=== PATIENT | male | born 1955 | race Caucasian/White ===

== ENCOUNTER 2021-12-06 05:41 | Day surgery (SDC) | payer OTHER ==
[2021-12-06] MEDS ORDERED: Lactated Ringers 1,000 ML IV SCH (07:00)
[2021-12-06] MEDS ORDERED: Xylocaine-Mpf 2% 5 Ml Vial ONE (08:00)
[2021-12-06] MEDS ORDERED: DIPRIVAN 200 MG/20 ML IV ONE ×2 (08:00→08:15)
[2021-12-06 09:12] VITALS: BP 130/88; PULSE 68; O2SAT 100
--- NOTE | 2021-12-06 11:13 | OP ---
SURGERY DATE/TIME: 12/06/2021 0759 PREOPERATIVE DIAGNOSIS: Screening exam. POSTOPERATIVE DIAGNOSIS: Normal colon. PROCEDURE: Colonoscopy. SURGEON: Dr. Mark Crum. ANESTHESIA: MAC. Medications given by anesthesia department. HISTORY: The patient is a 66-year-old white male patient presenting now for screening colonoscopy. He was appraised of the risks of the procedure including the risk of perforation, phlebitis, untoward reaction to medication, bleeding and missed lesions. The patient verbalized his understanding and desired to have the procedure performed. DESCRIPTION OF PROCEDURE: The patient was given the medications by the anesthesia department. He had continuous pulse oximetry, ECG monitoring, intermittent blood pressure monitoring during the examination. He was placed in the left lateral decubitus position. A digital rectal examination was performed and revealed normal anal sphincter tone, no masses and normal prostate. The flexible Olympus pediatric colonoscope was used to intubate the rectum. A view of the colon was developed sequentially to the cecum. Upon insertion and withdrawal, including a retroflex view in the rectum, no mucosal lesions were encountered. The scope was removed from the patient who tolerated the procedure well and was sent back to OP recovery in good condition. The prep was noted to be fair.
== END 2021-12-06 09:22 | disposition home or self-care (01) ==
LOC: SDC 05:41
PROVIDERS: ATTEND Family Medicine
DX: Z12.11 Encounter for screening for malignant neoplasm of colon (principal); E11.9 Type 2 diabetes mellitus without complications
CPT/HCPCS: 82947; G0121; J2704

== ENCOUNTER 2023-10-18 09:20 | Day surgery (SDC) | payer MEDICARE, OTHER ==
--- NOTE | 2023-10-16 13:53 | HP ---
DATE OF SURGERY: 10/18/2023 HISTORY OF PRESENT ILLNESS: The patient is a 58-year-old male presents with a complaint of bulge in the abdomen. It has been there for five to six months. It is soft and reduces. PAST MEDICAL HISTORY: Gout. Hypertension. Diabetes. Hyperlipidemia. PAST SURGICAL HISTORY: Left inguinal hernia repair. ALLERGIES: NKDA. MEDICATIONS: Pravastatin, metformin, Lisinopril, fenofibrate, allopurinol. FAMILY HISTORY: Alzheimer's and heart disease. SOCIAL HISTORY: Occasional alcohol. No smoking. REVIEW OF SYSTEMS: CONSTITUTIONAL: Denies fever or chills. CHEST: Denies shortness of breath. CVS: Denies chest pain. ABDOMEN: Denies abdominal pain. PHYSICAL EXAMINATION: GENERAL: No acute distress. CHEST: Nonlabored. No shortness of breath. CVS: Regular rate and rhythm. ABDOMEN: Soft with a 1 cm umbilical hernia soft and reduces. IMPRESSION: Umbilical hernia. PLAN: Open umbilical hernia repair with possible mesh with Dr. Jasbir Whitaker. As dictated by Beba Reyes NP.
[~2023-10-18 09:20] MED LIST: Lactated Ringers 1,000 ML IV ONE; Sensorcaine 0.25% 10 ML ONE
[2023-10-18] MEDS ORDERED: NEURONTIN ONE (09:57)
[2023-10-18] MEDS ORDERED: celeBREX 100 MG ONE (09:57)
[2023-10-18] MEDS ORDERED: Decadron 4 MG ONE ×2 (09:57→09:58)
[2023-10-18] MEDS ORDERED: TYLENOL EXTRA STRENGTH 500 MG ONE (09:57)
[2023-10-18] MEDS: Decadron 4 MG PO ONE (10:02)
[2023-10-18] MEDS: TYLENOL EXTRA STRENGTH 500 MG PO ONE (10:02)
[2023-10-18] MEDS: celeBREX 100 MG PO ONE (10:02)
[2023-10-18] MEDS: NEURONTIN PO ONE (10:02)
[2023-10-18] MEDS ORDERED: Lactated Ringers 1,000 ML IV ONE (10:29)
[2023-10-18] MEDS ORDERED: CEFAZOLIN 2 GM-D5W BAG** 2 GM/50 ML ML IV ONE (10:29)
[2023-10-18] MEDS: CEFAZOLIN 2 GM-D5W BAG** 2 GM/50 ML ML IV SCH (10:35)
[2023-10-18] MEDS: Lactated Ringers 1,000 ML IV SCH (10:35)
[2023-10-18] MEDS ORDERED: Xylocaine-Mpf 2% 5 Ml Vial ONE (10:55)
[2023-10-18] MEDS ORDERED: Zofran 4 MG/2 ML VIAL ONE (10:55)
[2023-10-18] MEDS ORDERED: DIPRIVAN 200 MG/20 ML IV ONE (10:55)
[2023-10-18] MEDS ORDERED: SUBLIMAZE 100 MCG/2 ML ONE (10:57)
[2023-10-18] MEDS ORDERED: Versed 2 MG/2 ML Injection ONE (10:59)
[2023-10-18] MEDS ORDERED: Quelicin Fliptop 200 MG/10 ML ONE (11:05)
[2023-10-18] MEDS ORDERED: Marcaine Mpf 0.5% Vial 30 Ml ONE (11:13)
[2023-10-18] MEDS ORDERED: ROCURONIUM BROMIDE IV ONE (11:14)
[2023-10-18] MEDS ORDERED: TRANDATE 20 MG/4 ML SYRINGE IV ONE (12:41)
[2023-10-18 13:27] VITALS: RESP 16
[2023-10-18 13:28] VITALS: BP 153/87; PULSE 71; TEMP 97; O2SAT 98
[2023-10-18] MEDS ORDERED: EXPAREL 133 MG/10 ML VIAL IJ ONE (15:36)
--- NOTE | 2023-10-19 07:53 | OP ---
SURGERY DATE/TIME: 10/18/2023 1055 PREOPERATIVE DIAGNOSIS: Symptomatic ventral hernia. POSTOPERATIVE DIAGNOSIS: Incarcerated ventral umbilical hernia with incarcerated omentum. PROCEDURES: 1) Open primary repair of umbilical ventral herniorrhaphy. 2) Resection of a portion of incarcerated omentum. SURGEON: Jasbir Whitaker M.D. ANESTHESIA: General. COMPLICATIONS: None. CONDITION: Stable. DESCRIPTION OF PROCEDURE: Taken to surgery. General anesthetic. Curvilinear incision. There was incarcerated omentum this was taken with two clamps and tied off with 2-0 Vicryl and returned back to the abdomen. Peritoneal sac was trimmed off. The fascial edges freed and approximated with running suture #0 Prolene. Good approximation and hemostasis. Skin closed with 4-0 Vicryl. Compression umbilical dressing. The patient tolerated the procedure satisfactorily.
== END 2023-10-18 13:45 | disposition home or self-care (01) ==
LOC: SDC 09:20
PROVIDERS: ATTEND Surgery
DX: K42.0 Umbilical hernia with obstruction, without gangrene (principal); K43.6 Other and unspecified ventral hernia with obstruction, without gangrene; E11.9 Type 2 diabetes mellitus without complications
CPT/HCPCS: 64488; 76937; 76942; 82947; 88302; J0330; J0690; J2250; J2405; J2704; J3010; L0625; A9270-GY

== ENCOUNTER 2024-01-23 05:47 | Day surgery (SDC) | payer MEDICARE, OTHER ==
[2024-01-23] MEDS ORDERED: Lactated Ringers 0 ML IV ONE (06:17)
[2024-01-23] MEDS ORDERED: Reglan 10 MG/2 ML ONE (06:20)
[2024-01-23] MEDS ORDERED: CEFAZOLIN 2 GM-D5W BAG** 2 GM/50 ML ML IV ONE (06:20)
[2024-01-23] MEDS ORDERED: Decadron 4 MG ONE (06:20)
[2024-01-23] MEDS ORDERED: TYLENOL EXTRA STRENGTH 500 MG ONE (06:20)
[2024-01-23] MEDS ORDERED: celeBREX 100 MG ONE (06:21)
[2024-01-23] MEDS ORDERED: Sodium Chloride 0.9% 1000 ML 1,000 ML ONE ×2 (06:21→09:20)
[2024-01-23] MEDS ORDERED: NEURONTIN ONE (06:21)
[2024-01-23] MEDS ORDERED: Pepcid 20 MG ONE (06:21)
[2024-01-23] MEDS: Decadron 4 MG PO ONE (06:25)
[2024-01-23] MEDS: NEURONTIN PO ONE (06:25)
[2024-01-23] MEDS: TYLENOL EXTRA STRENGTH 500 MG PO ONE (06:25)
[2024-01-23] MEDS: Pepcid 20 MG PO ONE (06:25)
[2024-01-23] MEDS: celeBREX 100 MG PO ONE (06:26)
[2024-01-23] MEDS: Reglan 10 MG/2 ML IV ONE (06:26)
[2024-01-23] MEDS: Sodium Chloride 0.9% 1000 ML 1,000 ML IV SCH (06:28)
[2024-01-23] MEDS: CEFAZOLIN 2 GM-D5W BAG** 2 GM/50 ML ML IV SCH (06:28)
[2024-01-23] MEDS ORDERED: EXPAREL 133 MG/10 ML VIAL IJ ONE ×2 (06:49→09:24)
[2024-01-23] MEDS ORDERED: MARCAINE 0.5%-EPI 1:200,000 VL IJ ONE (06:49)
[2024-01-23 07:23] LABS: ABO TYPING A; Antibody Screen NEGATIVE (NEGATIVE); RH TYPING POSITIVE
[2024-01-23] MEDS ORDERED: Versed 2 MG/2 ML Injection ONE (07:35)
[2024-01-23] MEDS ORDERED: SUBLIMAZE 100 MCG/2 ML ONE ×2 (07:35→09:21)
[2024-01-23] MEDS ORDERED: DIPRIVAN 200 MG/20 ML IV ONE (07:35)
[2024-01-23] MEDS ORDERED: ROCURONIUM BROMIDE IV ONE ×2 (07:35→09:18)
[2024-01-23] MEDS ORDERED: TRANEXAMIC ACID 1000 MG/10 ML ONE (08:56)
[2024-01-23] MEDS ORDERED: Sodium Chloride 0.9% 100 ML ONE (08:57)
[2024-01-23] MEDS ORDERED: PHENYLEPHRINE HCL ONE (09:08)
[2024-01-23] MEDS ORDERED: Lactated Ringers 1,000 ML IV ONE ×2 (09:16→10:58)
[2024-01-23] MEDS ORDERED: Marcaine 0.5%/Epinephrine 10 ML ONE (09:45)
[2024-01-23] MEDS ORDERED: Xylocaine-Mpf 2% 5 Ml Vial ONE (09:48)
--- NOTE | 2024-01-23 10:50 | XRAY ---
Indication: Total hip replacement. Comparison: None Single frontal view left hip demonstrates total hip arthroplasty with intact bipolar prosthesis/acetabular screw, osteopenia, and postoperative lateral soft tissue emphysema. No other bony, articular, or soft tissue abnormalities.
[2024-01-23] MEDS ORDERED: BRIDION 200MG/2ML IV ONE (11:14)
--- NOTE | 2024-01-23 12:36 | XRAY ---
Indication: Postop left total hip replacement. Comparison: December 25, 2023 and also taken earlier in the day. AP pelvis and 2 view left hip again demonstrates osteopenia, left total hip arthroplasty with intact bipolar prosthesis/acetabular screw, and lower lumbar degenerative changes. No other bony, articular, or soft tissue abnormalities.
[2024-01-23] MEDS: TYLENOL EXTRA STRENGTH 500 MG PO SCH (13:35)
[2024-01-23] MEDS: KEFLEX 500 MG PO SCH (13:35)
[2024-01-23] MEDS: Ecotrin 325 MG PO SCH (13:35)
[2024-01-23] MEDS: Zestril 5 MG PO SCH (15:22)
[2024-01-23] MEDS: Tricor 145 MG PO SCH (15:22)
[2024-01-23] MEDS: ZOCOR 20MG PO SCH (15:22)
[2024-01-23] MEDS: ZYLOPRIM 300 MG PO SCH (15:23)
[2024-01-23] MEDS ORDERED: MORPHINE SULFATE 2 MG INJ IV PRN (16:47)
[2024-01-23] MEDS: Glucophage 500 MG PO SCH (17:21)
[2024-01-23 20:33] VITALS: RESP 18
[2024-01-24 01:01] VITALS: O2SAT 96
[2024-01-24 06:48] VITALS: BP 123/72; PULSE 89; TEMP 98.4
[2024-01-24] MEDS: Oxy-IR 5 MG PO PRN (08:47)
--- NOTE | 2024-01-24 09:40 | PCM.NOTE ---
Date and Time: 01/24/24916 Subjective Assessment: Follow-up left total hip arthroplasty January 22, 2024 Doing well today, minimal pain Was held over from discharge yesterday due to weakness of left lower extremity, did not progress well with therapy, physical therapist recommended that he stay for additional recovery and rehab Objective Exam Objective Exam: Awake alert oriented, no complaints, neurovascular intact Objective Data Vital Signs: Vital Signs - 24 hr Temp Pulse Resp BP Pulse Ox 01/24/24 06:46 98.4 F 89 18 123/72 96 01/24/24 05:00 98.7 F 93 H 18 140/77 96 01/24/24 01:00 99.3 F 95 H 18 110/60 96 01/23/24 20:33 99.7 F 106 H 18 108/69 97 01/23/24 16:25 97.7 F 92 H 16 105/69 93 L 01/23/24 13:12 98.0 F 83 16 115/66 95 Pain Assessment - Last Documented Pain Intensity 5 Pain Scale Used 0-10 Pain Scale Intake and Output: Intake & Output 01/21/24 01/22/24 01/23/24 01/24/24 11:59 11:59 11:59 11:59 Intake Total 1060 Output Total 1850 Balance -790 Weight 88.8 kg Radiology Exams: Radiology Procedures Category Date Time Status HIP UNI (2V) INCL PEL IF DONE Routine Exams 01/23/24 12:00 Completed HIP UNILATERAL (1 VIEW) Routine Exams 01/23/24 09:03 Completed Multi-Disciplinary Progress Notes: Multi-Disciplinary Progress Notes 01/24/24 08:41 Case Management Note by Tata Arguello PATIENT DENIES ANY NEEDS AFTER DC. STATES HAS OUTPT THERAPY ALREADY SET UP AND HAS PICKED UP WALKER ALREADY Initialized on 01/24/24 08:41 - END OF NOTE 01/23/24 13:13 Occupational Therapy Note by Martha Conteh PER NURSING STAFF, DR. FRIED DOES NOT WANT AN OT EVALUATION; THEREFORE, NOT PLACED IN [facility]. OCCUPATIONAL THERAPY PROVIDES EDUCATION AND TRAINING ON ADAPTIVE EQUIPMENT AND DME FOR ADLS DUE TO HIP PRECAUTIONS FOLLOWING ELIE; HOWEVER, OT REQUIRES PHYSICIAN ORDER FOR AN EVALUATION. Initialized on 01/23/24 13:13 - END OF NOTE Assessment/Plan - Assessment/Plan Assessment & Plan: Impression 1. Status post left total hip arthroplasty Plan #1 Occupational Therapy consult #2 physical therapy #3 discharge after therapy if he displays independence with gait and transfer #4 follow-up in 3 weeks
[2024-01-24] MEDS: celeBREX 100 MG PO SCH (09:54)
--- NOTE | 2024-01-24 14:25 | OP ---
SURGERY DATE/TIME: 01/23/2024 6718 - 4600 PREOPERATIVE DIAGNOSIS: Primary osteoarthritis, left hip. POSTOPERATIVE DIAGNOSIS: Primary osteoarthritis, left hip. PROCEDURE: Left total hip arthroplasty. SURGEON: John Gold MD. IMPLANTS: [employer] Avenir Complete hip stem, size 5 standard, 40 mm, +3.5 mm ceramic head, 58 mm acetabular component with 25 mm screw, posterior lipped polyethylene liner. INDICATIONS: This 68-year-old male was seen in the office for evaluation of pain in the left hip that had been chronic and progressive and he was concerned about navigating ADLs with his persistent daily constant chronic pain and limited range of motion of left hip. Radiographs showed advanced DJD of the left hip. We discussed treatment options and he elected for surgical management. We discussed total hip replacement, various methods of hip insertion, risks and benefits. Consent was obtained to proceed with posterior approach total hip arthroplasty. DESCRIPTION OF PROCEDURE AND FINDINGS: Patient was seen preoperatively and the operative limb was identified, confirmed, and initialed. He was taken to the operating room after receiving an iliofascial block by anesthesia staff. In the OR, he was placed under general anesthesia. We confirmed presence of dorsalis pedis pulse with ultrasound. He was placed in a left lateral decubitus position on a padded pegboard. The pelvis was kept vertical. We performed a sterile prep and drape of the hip area. The left lower extremity was draped free to promote mobility. We made a posterolateral hip incision. This was carried down to the fascia. The fascia was exposed and incised and retracted. The soft tissue was removed from the external rotators which was then released. We retained the piriformis initially. We osteotomized the femoral neck and removed the neck fragments and femoral head. The head was measured. Retractors were inserted to expose the acetabular component. We measured the femoral head at a size 55. We began reaming with a size 54 and reamed up to size 57, which had circumferential contact. We inserted a size 57 trial acetabular component, which was stable, so we selected a size 58 mm final acetabular component with cluster hole configuration. This was impacted utilizing Gabrielle alignment devices. Good purchase was achieved and we augmented this with a single 25 mm screw which obtained excellent purchase. A trial lipped liner was inserted. The femur was addressed. It was first exposed. The lesser trochanter was identified. We osteotomized the calcar area 1 fingerbreadth above the lesser trochanter. Box chisel was used to remove bone from the lateral entry point. Canal finder was used followed by lateralizing broach. We then began broaching sequentially with the Avenir Complete broaches. The size 5 was stable. We then applied a standard length femoral head, reduced the hip, checked stability, and then took an x-ray. The x-ray showed good positioning of components. Leg lengths appeared to be symmetric as was offset. Pleased with this configuration and stability, we selected these as the final implants. We removed the trials including the trial liner. Pulsatile lavage was performed. The final liner was inserted followed by the femoral stem and +3.5 mm ceramic head. Stability was once again tested and was noted to be quite stable. We performed final pulsatile lavage. We injected Exparel 20 mL combined with 15 mL of 0.5% Marcaine and 40 mL of saline. This was injected primarily along the incision and bursal region. Closure was then performed. We did reapproximate the posterior capsule and external rotators back to the greater trochanter and gluteus medius insertion. Once this was done, we closed the fascia with a running layer of #1 Ethibond. Subcutaneous tissue closure was done with 2-0 Vicryl followed by subcuticular closure of skin with 4-0 Monocryl. Dermabond was applied followed by a dressing. Patient was taken to recovery room in stable condition.
== END 2024-01-24 10:35 | disposition home or self-care (01) ==
LOC: SDC 05:47 → MED SURG 12:55 → SDC 01-24 10:35
PROVIDERS: ATTEND Orthopaedic Surgery
DX: M16.12 Unilateral primary osteoarthritis, left hip (principal); E11.9 Type 2 diabetes mellitus without complications
CPT/HCPCS: 01214; 27130; 36415; 64447; 73501; 73502; 76937; 76942; 82947; 86850; 86900; 86901; 97161; 97165; 97530; C1776; J0690; J2250; J2371; J2704; J3010; A9270-GY